=== PATIENT | female | born 1990 | race Caucasian/White ===

== ENCOUNTER → 2016-12-26 | Outpatient (CLI) | payer MEDICAID ==
--- NOTE | 2016-12-26 12:51 | EKG REPORT ---
SEVERITY:- NORMAL ECG - SINUS RHYTHM : Confirmed by: Michael Kaur 26-Dec-2016 12:49:49
== END ==
LOC: OD 11:52
PROVIDERS: ATTEND Advanced Practice Midwife
DX: R05 Cough (principal)
CPT/HCPCS: 93005; 93010

== ENCOUNTER → 2016-12-27 | Outpatient (CLI) | payer MEDICAID | LOC: OD 10:40 | PROVIDERS: ATTEND Advanced Practice Midwife | DX: O26.892 Other specified pregnancy related conditions, second trimester (principal); R07.89 Other chest pain; R05 Cough; Z3A.22 22 weeks gestation of pregnancy | CPT/HCPCS: 71020 ==

== ENCOUNTER 2017-01-05 18:11 | Emergency (ER) | payer MEDICAID ==
[2017-01-05] MEDS ORDERED: METHYLPREDNISOLONE INJ 125 MG/2 ML SDV IV ONE (18:54)
--- NOTE | 2017-01-05 18:54 | ER Document Report ---
ED Medical Screen (RME) - General Stated Complaint: DIFFICULTY BREATHING Time seen by provider: 18:52 Mode of Arrival: Ambulatory Information source: Patient Notes: 26-year-old female presents to ED for difficulty breathing. She states she has an albuterol inhaler but she still cannot find it. She states she's been told she had asthma before right now she's 24 weeks . The readings been more difficult since she was 20 weeks . I have greeted and performed a rapid initial assessment of this patient. A comprehensive ED assessment and evaluation of the patient, analysis of test results and completion of medical decision making process will be conducted by an additional ED providers. TRAVEL OUTSIDE OF THE [place] IN LAST 30 DAYS: No - Related Data Allergies/Adverse Reactions: No Known Allergies Allergy (Unverified 06/16/13 20:20) Past Medical History Past Surgical History: Reports: Hx Cholecystectomy - Immunizations Hx Diphtheria, Pertussis, Tetanus Vaccination: Yes Physical Exam - Vital signs Vitals: Temp Pulse Resp BP Pulse Ox 98.0 F 87 22 H 122/56 L 98 01/05/17 18:28 01/05/17 18:28 01/05/17 18:28 01/05/17 18:28 01/05/17 18:28 Course - Vital Signs Vital signs: Temp Pulse Resp BP Pulse Ox 98.0 F 87 22 H 122/56 L 98 01/05/17 18:28 01/05/17 18:28 01/05/17 18:28 01/05/17 18:28 01/05/17 18:28
[2017-01-05] MEDS ORDERED: IPRATROPIUM BROMIDE 0.02% NEB 0.5 MG/2.5 ML AMPUL NEB ONE (18:56)
[2017-01-05] MEDS ORDERED: ALBUTEROL SULFATE 0.083% NEB 2.5 MG/3 ML AMPUL NEB SCH (19:00)
[2017-01-05] MEDS ORDERED: IPRATROPIUM/ALBUTEROL 0.5-2.5 MG/3 ML AMPUL NEB ONE (19:37)
--- NOTE | 2017-01-05 19:44 | ER Document Report ---
ED General - General Chief Complaint: Breathing Difficulty Stated Complaint: DIFFICULTY BREATHING Mode of Arrival: Ambulatory Notes: This is a 26-year-old female at 24 weeks' gestational age with a history of asthma who presents with wheezing and cough. She states that she was sick 3 weeks ago with an upper respiratory illness and was treated with an antibiotic and inhaler from her OB physician. However today she lost her inhaler. She states that the upper respiratory infection is better however the cough has been lingering and now that she does not have her inhaler she feels short of breath. Denies any chest pain, fevers, chills. She is tolerating by mouth well. She has an OB appointment tomorrow. TRAVEL OUTSIDE OF THE [place] IN LAST 30 DAYS: No - Related Data Allergies/Adverse Reactions: No Known Allergies Allergy (Verified 01/05/17 18:52) Past Medical History - General Information source: Patient - Social History Smoking Status: Former Smoker Chew tobacco use (# tins/day): No Frequency of alcohol use: None Drug Abuse: None Family History: Reviewed & Not Pertinent Patient has suicidal ideation: No Patient has homicidal ideation: No Renal/ Medical History: Denies: Hx Peritoneal Dialysis Past Surgical History: Reports: Hx Cholecystectomy - Immunizations Hx Diphtheria, Pertussis, Tetanus Vaccination: Yes Review of Systems - Review of Systems Notes: REVIEW OF SYSTEMS: CONSTITUTIONAL : Denies fever, chills, or sweats. EENT: Denies eye, ear, throat, or mouth pain or symptoms. CARDIOVASCULAR: Denies chest pain. RESPIRATORY: As per history of present illness GASTROINTESTINAL: Denies abdominal pain. Denies nausea, vomiting, or diarrhea. GENITOURINARY: Denies difficulty urinating, painful urination, burning, frequency, or blood in urine. No vaginal bleeding or loss of fluids. MUSCULOSKELETAL: Denies neck or back pain or joint pain or swelling. SKIN: Denies rash or skin lesions. HEMATOLOGIC : Denies easy bruising or bleeding. LYMPHATIC: Denies swollen, enlarged glands. NEUROLOGICAL: Denies altered mental status or loss of consciousness. Denies headache. PSYCHIATRIC: Denies anxiety or stress or depression. ALL OTHER SYSTEMS REVIEWED AND NEGATIVE. Physical Exam - Vital signs Vitals: Temp Pulse Resp BP Pulse Ox 98.0 F 87 22 H 122/56 L 98 01/05/17 18:28 01/05/17 18:28 01/05/17 18:28 01/05/17 18:28 01/05/17 18:28 - Notes Notes: PHYSICAL EXAMINATION: GENERAL: Well-appearing, well-nourished and in no acute distress. Pleasant and conversant with no conversational dyspnea HEAD: Atraumatic, normocephalic. EYES: Pupils equal round and reactive to light, extraocular movements intact, sclera anicteric, conjunctiva are normal. ENT: nares patent, oropharynx clear without exudates. Moist mucous membranes. NECK: Normal range of motion, supple without lymphadenopathy LUNGS: Good air movement bilaterally, scattered before and expiratory wheezes bilaterally. No rhonchi or rales. HEART: Regular rate and rhythm without murmurs ABDOMEN: Soft, nontender, normoactive bowel sounds. No guarding, no rebound. Gravid EXTREMITIES: Normal range of motion, no pitting or edema. No cyanosis. NEUROLOGICAL: Cranial nerves grossly intact. Normal speech, normal gait. No gross focal motor or sensory deficits appreciated PSYCH: Normal mood, normal affect. SKIN: Warm, Dry, normal turgor, no rashes or lesions noted. Course - Re-evaluation Re-evalutation: 01/05/17 21:50 Patient is feeling significantly better after methylprednisolone and neb treatments. The lungs are clear to auscultation bilaterally. FHT's obtained and reassuring. She will follow up with her OB physician tomorrow as scheduled. We will refill her albuterol inhaler and put her on a short course of prednisone. Strict return precautions discussed 01/06/17 00:11 - Vital Signs Vital signs: Temp Pulse Resp BP Pulse Ox 98.4 F 90 22 H 118/57 L 96 01/05/17 20:21 01/05/17 20:21 01/05/17 18:28 01/05/17 20:21 01/05/17 20:21 Discharge - Discharge Clinical Impression: Asthma exacerbation Qualifiers: Weeks of gestation: 24 weeks Qualified Code(s): Z3A.24 - 24 weeks gestation of Condition: Stable Disposition: HOME, SELF-CARE Additional Instructions: ASTHMA: This is a condition where there is episodic tightness in the bronchial tubes. Allergies, infections, and polluted or cold air may be contributing factors. Emergency treatment of a severe asthma attack may include adrenaline shots , or bronchodilator aerosol. You may feel lightheaded, have a decreased exercise tolerance and a rapid pulse for an hour or two. Rest and get plenty of fluids. Home treatment of asthma requires bronchodilator drugs. These can be administered by injection, inhalation, or by mouth. Antibiotics and corticosteroids may be required for some patients. You should avoid chemical fumes, dusts, pollens, and exercising in very cold or dry air. If you smoke, stop!! If you develop a fever, increased wheezing, chest pain, or severe shortness of breath, you should contact the doctor immediately. STEROID MEDICATION: You have been given an injection of or oral medicine of the cortisone/ steroid class. This medication is used to control inflammation or allergy. Lonnie t is usually only given for a short period of time, until the acute process subsides. There are usually no side effects from short-term use of cortisone-like medications. Some persons feel an increased sense of well-being and are not sleepy at bedtime. Long-term use of cortisone medications is best avoided, unless required for a severe condition. If your condition does not remit, or relapses after the course of corticosteroid medication, you should consult your physician. INHALED BRONCHODILATORS: You have received treatment(s) of and/or prescription for an inhaled bronchodilator -- a medication which stimulates the airways in the lung to dilate. This improves the flow of air in asthma, bronchitis, and emphysema. These medicines have some similarity to adrenaline, and can cause similar side effects: shakiness, racing heart, and a sense of nervousness. These side effects decrease with time. Contact your doctor if these side effects are severe. Do not over-use the medicine. Too-frequent use of the inhaler may make it ineffective. Call your doctor if the inhaler is not controlling your symptoms at the prescribed doses. FOLLOW-UP CARE: If you have been referred to a physician for follow-up care, call the physician s office for an appointment as you were instructed or within the next two days. If you experience worsening or a significant change in your symptoms, notify the physician immediately or return to the Emergency Department at any time for re-evaluation. Follow-up with your [employer] physician tomorrow as scheduled. Return to the ER for any worsening symptoms or concerns. Prescriptions: Albuterol Sulfate [Proair HFA Inhalation Aerosol 8.5 gm MDI] 2 puff IH Q4H PRN # 1 mdi PRN Reason: Prednisone [Deltasone 20 mg Tablet] 2 tab PO DAILY 5 Days
[2017-01-05 20:49] VITALS: BP 118/57
== END 2017-01-05 22:05 | disposition home or self-care (01) ==
LOC: ER 18:11
DX: O99.512 Diseases of the respiratory system complicating pregnancy, second trimester (principal); J45.901 Unspecified asthma with (acute) exacerbation; O26.892 Other specified pregnancy related conditions, second trimester; R05 Cough; R06.02 Shortness of breath; Z87.891 Personal history of nicotine dependence; Z3A.24 24 weeks gestation of pregnancy
CPT/HCPCS: 94640 ×2; 99284; 96374; J2930; J3490; J7620

== ENCOUNTER 2017-01-22 15:13 | Emergency (ER) | payer MEDICAID ==
--- NOTE | 2017-01-22 15:41 | ER Document Report ---
ED Medical Screen (RME) - General Stated Complaint: LEFT SIDE RIB PAIN Notes: 26 yo 26wk c/o left rib pain x 2 weeks, coughed today felt sharp pain and increased pain to left lateral chest wall. no related complaints TRAVEL OUTSIDE OF THE [place] IN LAST 30 DAYS: No - Related Data Allergies/Adverse Reactions: No Known Allergies Allergy (Verified 01/22/17 15:36) Past Medical History Renal/ Medical History: Denies: Hx Peritoneal Dialysis Past Surgical History: Reports: Hx Cholecystectomy - Immunizations Hx Diphtheria, Pertussis, Tetanus Vaccination: Yes
--- NOTE | 2017-01-22 20:06 | ER Document Report ---
ED General - General Chief Complaint: Rib Pain Stated Complaint: LEFT SIDE RIB PAIN Mode of Arrival: Ambulatory Information source: Patient Notes: 26-year-old female presents to the emergency department complaining of left lower lateral rib pain/thorax wall pain. Patient reports is approximately 26 weeks , . Patient states had upper respiratory infection approximately 2 weeks ago with a strong cough. Reports had pain to same area at the time and had almost completely resolved however coughed today and felt a pulling type pain to area and states pain has returned. Denies fever, hemoptysis , sob, n/v, abd/pelvic pain, vaginal bleeding or discharge. Reports was evaluated by [facility] [employer] this morning without abnormal findings. TRAVEL OUTSIDE OF THE [place] IN LAST 30 DAYS: No - HPI Onset/Duration: Intermittent Quality of pain: Achy Severity: Moderate Pain Level: 3 Exacerbated by: Coughing, Deep breathing Similar symptoms previously: Yes Recently seen / treated by doctor: Yes - Related Data Allergies/Adverse Reactions: No Known Allergies Allergy (Verified 01/22/17 15:36) Past Medical History - General Information source: Patient - Social History Smoking Status: Former Smoker Frequency of alcohol use: None Drug Abuse: None Lives with: Family Family History: Reviewed & Not Pertinent Patient has suicidal ideation: No Patient has homicidal ideation: No - Medical History Medical History: Negative Renal/ Medical History: Denies: Hx Peritoneal Dialysis Past Surgical History: Reports: Hx Cholecystectomy - Immunizations Hx Diphtheria, Pertussis, Tetanus Vaccination: Yes Review of Systems - Review of Systems Constitutional: No symptoms reported EENT: No symptoms reported Cardiovascular: No symptoms reported Respiratory: No symptoms reported Gastrointestinal: No symptoms reported Genitourinary: No symptoms reported Female Genitourinary: No symptoms reported Musculoskeletal: No symptoms reported Skin: No symptoms reported Hematologic/Lymphatic: No symptoms reported Neurological/Psychological: See HPI -: Yes All other systems reviewed and negative Physical Exam - Vital signs Vitals: Temp Pulse Resp BP Pulse Ox 98.8 F 100 20 126/68 H 97 01/22/17 15:35 01/22/17 15:35 01/22/17 15:35 01/22/17 15:35 01/22/17 15:35 Interpretation: Normal - General General appearance: Appears well, Alert In distress: None - HEENT Head: Normocephalic, Atraumatic Eyes: Normal Pupils: PERRL - Respiratory Respiratory status: No respiratory distress. No: Respiratory distress, Labored , Retractions, Tachypnea, Tripod position Chest status: Tender, Pain on movement, Pain with cough, Pain with deep breathing. No: Nontender, Chest mass, Ecchymosis, No pleuritic chest pain, Wounds, Accessory muscle use, Prolonged expirations, Splinting, Other Breath sounds: Normal - CTAB Chest palpation: Tender - pt c/o tenderness with palpation to left lateral lower chest wall/rib area. No instability, crepitus, bruising, or swelling.. No : Flail segment, [place] frothy sputum, Purulent sputum, Subcutaneous emphysema, Sucking chest wound, Ecchymosis, Wounds, Other - Cardiovascular Rhythm: Regular Heart sounds: Normal auscultation Murmur: No Pulses: Normal: Radial Normal capillary refill: Yes - Abdominal Inspection: Normal, Gravid female Distension: No distension Bowel sounds: Normal Tenderness: Nontender Organomegaly: No organomegaly - Back Back: Normal, Nontender - Extremities General upper extremity: Normal inspection, Nontender, Normal color, Normal ROM , Normal strength, Normal temperature. No: Edema General lower extremity: Normal inspection, Nontender, Normal color, Normal ROM , Normal strength, Normal temperature, Normal weight bearing. No: Edema, Moon' s sign - Neurological Neuro grossly intact: Yes Cognition: Normal Orientation: AAOx4 Shauna Coma Scale Eye Opening: Spontaneous Shauna Coma Scale Verbal: Oriented [place] Coma Scale Motor: Obeys Commands [place] Coma Scale Total: 15 Speech: Normal Motor strength normal: LUE, RUE, LLE, RLE Sensory: Normal - Psychological Associated symptoms: Normal affect, Normal mood - Skin Skin Temperature: Warm Skin Moisture: Dry Skin Color: Normal Course - Re-evaluation Re-evalutation: 01/22/17 20:10 Patient hemodynamically stable, in no distress, afebrile, nontoxic, and appears well-hydrated. Patient declined x-ray at this time. Patient physical exam findings suggestive of likely intercostal muscle strain with no suggestion of pneumothorax, displaced rib fracture, or other emergent intrathoracic etiology at this time. Patient appears stable for discharge and agrees with home care, follow-up, and ED return precautions. - Vital Signs Vital signs: Temp Pulse Resp BP Pulse Ox 97.8 F 98 16 129/64 H 97 01/22/17 20:20 01/22/17 20:20 01/22/17 20:20 01/22/17 20:20 01/22/17 20:20 Discharge - Discharge Clinical Impression: Intercostal muscle strain Qualifiers: Encounter type: initial encounter Qualified Code(s): S29.011A - Strain of muscle and tendon of front wall of thorax, initial encounter Condition: Stable Disposition: HOME, SELF-CARE Instructions: Chest Wall Pain ([facility]), Muscle Strain ([facility]), Acetaminophen, Warm Packs ([facility]) Additional Instructions: Follow-up with your primary care provider in the next 1-2 days as discussed. Return to the Emergency Department for any worsening symptoms or concerns. Prescriptions: Lidocaine/Menthol [Lidopatch] 1 patch TP DAILY PRN #5 adh..patch PRN Reason: Referrals: CARMELO SOFIA MD [Primary Care Provider] - Follow up tomorrow
[2017-01-22 20:23] VITALS: BP 129/64
== END 2017-01-22 20:23 | disposition home or self-care (01) ==
LOC: ER 15:13
DX: O9A.219 Injury, poisoning and certain other consequences of external causes complicating pregnancy, unspecified trimester (principal); S29.011A Strain of muscle and tendon of front wall of thorax, initial encounter; X58.XXXA Exposure to other specified factors, initial encounter; O26.899 Other specified pregnancy related conditions, unspecified trimester; R07.81 Pleurodynia; Z87.891 Personal history of nicotine dependence; Z3A.00 Weeks of gestation of pregnancy not specified
CPT/HCPCS: 99283

== ENCOUNTER → 2017-01-22 | Outpatient (CLI) | payer MEDICAID | LOC: LC 14:33 | PROVIDERS: ATTEND Obstetrics & Gynecology | DX: Z53.9 Procedure and treatment not carried out, unspecified reason (principal) ==

== ENCOUNTER 2017-04-25 06:37 | Inpatient (IN) | payer MEDICAID ==
[2017-04-24 09:43] LABS: APPEARANCE,URINE SLIGHTLY-CLOUDY; BILIRUBIN,URINE NEGATIVE (NEGATIVE); GLUCOSE, URINE NEGATIVE (NEGATIVE); KETONES,URINE TRACE mg/dL (NEGATIVE); LEUKOCYTE ESTERASE,URINE NEGATIVE (NEGATIVE); NITRITE,URINE NEGATIVE (NEGATIVE); PROTEIN,URINE 30 mg/dL (NEGATIVE); URINE SPECIFIC GRAVITY 1.024
[2017-04-24 09:49] LABS: ABSOLUTE EOSINOPHILS # (AUTO) 0.2 10^3/uL (0.0-0.6); ABSOLUTE LYMPHOCYTES (AUTO) 2.5 10^3/uL (0.5-4.7); ABSOLUTE MONOCYTES (AUTO) 0.5 10^3/uL (0.1-1.4); ABSOLUTE NEUT (AUTO) 6.4 10^3/uL (1.7-8.2); BASOPHILS % (AUTO) 0.2 % (0-2); EOSINOPHILS % (AUTO) 2.3 % (0-6); HEMATOCRIT 35.4 % (36.0-47.0); HEMOGLOBIN 12.1 g/dL (12.0-15.5); HGB HCT DIFFERENCE 0.9; MEAN CORPUSCULAR HEMOGLOBIN 29.8 pg (27.0-33.4); MEAN CORPUSCULAR HGB CONC 34.2 g/dL (32.0-36.0); MEAN CORPUSCULAR VOLUME 87 fl (80-97); MONOCYTES % (AUTO) 4.9 % (3-13); RED BLOOD COUNT 4.05 10^6/uL (3.72-5.28); SEGMENTED NEUTROPHILS % (AUTO) 66.6 % (42-78); WHITE BLOOD COUNT 9.5 10^3/uL (4.0-10.5)
[2017-04-24 09:59] LABS: URINE BARBITURATES SCREEN NEGATIVE; URINE METHADONE SCREEN NEGATIVE; URINE OPIATES LOW NEGATIVE; URINE PHENCYCLIDINE SCREEN NEGATIVE
[~2017-04-25 06:37] MED LIST: CEFAZOLIN 1 GM/D5W RTU 1 GM/50 ML RTUPB IV PRN; LACTATED RINGERS 1000 ML IV PRN; LIDOCAINE 0.5% INJ-PF (5 MG/ML) 50 ML SDV SUBCUT PRN; RINGERS SOLUTION,LACTATED 1,000 ML IV ONE
[2017-04-25] MEDS ORDERED: EPHEDRINE SULFATE INJ 50 MG/1 ML AMPULE ONE (07:34)
[2017-04-25] MEDS ORDERED: FENTANYL CITRATE INJ/PF 100 MCG/2 ML AMPUL ONE ×2 (07:34→11:59)
[2017-04-25] MEDS ORDERED: MIDAZOLAM 2 MG/2 ML INJ ONE (07:34)
[2017-04-25] MEDS ORDERED: OXYTOCIN 10 UNIT/ML VIAL ONE (07:34)
[2017-04-25] MEDS ORDERED: OXYTOCIN/NORMAL SALINE 20 UNIT/1,000 ML RTUINJ ONE (07:34)
[2017-04-25] MEDS ORDERED: MEPERIDINE HCL/PF INJ 25 MG/1 ML DISP.SYRIN IV PRN (10:00)
[2017-04-25] MEDS ORDERED: MORPHINE SULFATE 10 MG/ML INJ IV PRN (10:00)
[2017-04-25] MEDS ORDERED: PROMETHAZINE HCL INJ 25 MG/1 ML VIAL IV PRN ×3 (10:00→12:43)
[2017-04-25] MEDS ORDERED: FENTANYL CITRATE INJ/PF 100 MCG/2 ML AMPUL IV PRN ×3 (10:00)
[2017-04-25] MEDS ORDERED: ONDANSETRON HCL INJ/PF 4 MG/2 ML SDV IV PRN ×2 (10:00→12:47)
[2017-04-25] MEDS ORDERED: DIPHENHYDRAMINE HCL 50 MG/ML VIAL IV PRN (10:00)
[2017-04-25] MEDS ORDERED: CEFAZOLIN INJ 1 GM VIAL ONE (10:26)
[2017-04-25] MEDS ORDERED: MISOPROSTOL 0.2 MG TABLET ONE ×2 (10:29→13:26)
[2017-04-25] MEDS ORDERED: ACETAMINOPHEN 100 ML IV ONE (11:47)
[2017-04-25] MEDS ORDERED: HYDROMORPHONE HCL INJ/PF 2 MG/ML AMPULE ONE ×2 (12:01→13:25)
[2017-04-25] MEDS ORDERED: MEASLES,MUMPS&RUBELLA VACC/PF 0.5 ML VIAL SUBCUT PRN (12:43)
[2017-04-25] MEDS ORDERED: DIPH/PERTUSS(ACELL)/TETANUS VAC/PF 0.5 ML SYR (>=10YO) IM PRN (12:43)
[2017-04-25] MEDS ORDERED: ACETAMINOPHEN 325 MG TABLET PO PRN (12:43)
[2017-04-25] MEDS ORDERED: OXYTOCIN/NORMAL SALINE 1,000 ML IV PRN (12:43)
[2017-04-25] MEDS ORDERED: HYDROMORPHONE HCL INJ/PF 2 MG/ML AMPULE IV PRN (12:43)
--- NOTE | 2017-04-25 13:14 | OPERATIVE REPORT E ---
Operative Report NAME: SANKET SYLVESTER : 1990 AGE: 26Y DATE OF SURGERY: 04/25/2017 ROOM: 222 PREOPERATIVE DIAGNOSIS: Intrauterine at 39+ weeks with history of C section and desire for repeat with tubal ligation. POSTOPERATIVE DIAGNOSIS: Status post repeat low-transverse C section with bilateral tubal ligation and lysis of adhesions. OPERATION PERFORMED: Repeat low-transverse C section with bilateral tubal ligation and lysis of adhesions. SURGEON: VANNA ALFARO M.D. ANESTHESIA: Spinal. ESTIMATED BLOOD LOSS: 600 mL. SPECIMEN TO PATHOLOGY: None. The placenta was discarded. FINDINGS: A casiano female , vertex presentation with clear amniotic fluid, Apgars 9 and 9. Weight was 3465 grams or 7 pounds 10 ounces. Normal-appearing uterus, tubes, and ovaries; however, there were significant intraperitoneal adhesions from the anterior aspect of the uterus to the anterior abdominal wall. DESCRIPTION OF PROCEDURE: After discussing risks, benefits, and alternatives of the procedure and obtaining informed consent, the patient was taken to the operating room, where spinal anesthesia was achieved. She was positioned in a dorsal supine position with a leftward tilt. She was prepped and draped in the usual standard fashion after placing her Campuzano catheter. Anesthesia was found to be adequate. Pfannenstiel skin incision was made and the abdomen was entered in layers in the standard fashion. On entering into the peritoneal cavity, significant adhesions were noted. A window was cleared to allow for a hysterotomy incision. This was done sharply and bluntly. Next, using a C-safe knife, the hysterectomy incision was made. The initial attempt at delivering the baby's head was somewhat limited. Therefore, the muscles were incised on the patient's left with cautery. Next, the head delivered easily. The shoulders and body delivered easily thereafter. Cord was clamped and cut. was handed to pediatrics who were present. The placenta was manually extracted. The uterus was unable to be exteriorized until further adhesions were lysed. The dense adhesion was clamped with Angelica clamp and cut and suture ligated. The uterus was then able to be exteriorized. The hysterotomy incision was cleared of all clots and debris and the hysterotomy incision was closed in a double-layer fashion with 0-Monocryl. Hemostasis was observed. During this process, an area superior to the incision was also closed with 2-0 Vicryl. Next, a Filshie clip was placed across the isthmic portion of each fallopian tube. Uterus, tubes, and ovaries were returned to the peritoneal cavity. An area of oozing anterior to the bladder was noted and this was oversewn with running 2-0 Vicryl. Excellent hemostasis was then observed. A piece of Surgicel was placed over the anterior aspect of the uterus where the peritoneal adhesions had been. Next, the peritoneum was closed with 2-0 Vicryl in a running fashion. The subfascial spaces were inspected and noted to be hemostatic. Fascia was closed with #1 Vicryl. The subcutaneous spaces were irrigated and hemostasis achieved with cautery. The skin was closed in a subcuticular fashion with 3-0 Monocryl. An OpSite dressing was applied. The patient was taken to recovery in stable condition. All sponge, needle, lap, and instrument counts were correct x2. DICTATING PHYSICIAN: VANNA ALFARO M.D. [id number] PHY#: [id number] ID: [id number] JOB#: [id number] ACCT: [id number] cc:VANNA ALFARO M.D. >
[2017-04-25] MEDS: DOCUSATE SODIUM 100 MG CAPSULE PO SCH (18:22)
[2017-04-25] MEDS: CEFAZOLIN 1 GM/D5W RTU 1 GM/50 ML RTUPB IV SCH (18:23)
[2017-04-25] MEDS ORDERED: NEOSTIGMINE METHYLSULFATE 10 MG/10 ML VIAL ONE (18:44)
[2017-04-25] MEDS ORDERED: METOCLOPRAMIDE HCL INJ/PF 10 MG/2 ML SDV ONE (18:44)
[2017-04-25] MEDS ORDERED: ONDANSETRON HCL INJ/PF 4 MG/2 ML SDV ONE (18:44)
[2017-04-25] MEDS ORDERED: DEXAMETHASONE SOD PHOSPHATE INJ 4 MG/1 ML VIAL ONE (18:44)
[2017-04-25] MEDS: OXYCODONE-ACETAMINOPHEN 5-325 MG TABLET PO PRN ×2 (19:48→23:59)
[2017-04-26] MEDS: CEFAZOLIN 1 GM/D5W RTU 1 GM/50 ML RTUPB IV SCH (01:21)
[2017-04-26] MEDS: OXYCODONE-ACETAMINOPHEN 5-325 MG TABLET PO PRN ×5 (04:01→22:27)
[2017-04-26] MEDS: SIMETHICONE 80 MG TAB.CHEW PO PRN ×3 (04:06→18:33)
[2017-04-26 06:30] LABS: HEMATOCRIT 32.3 % (36.0-47.0); HGB HCT DIFFERENCE 0.7; MEAN CORPUSCULAR HEMOGLOBIN 29.7 pg (27.0-33.4); MEAN CORPUSCULAR VOLUME 87 fl (80-97); RED CELL DISTRIBUTION WIDTH 12.9 % (11.5-14.0); WHITE BLOOD COUNT 13.5 10^3/uL (4.0-10.5)
[2017-04-26] MEDS ORDERED: ALBUTEROL SULFATE 0.083% NEB 2.5 MG/3 ML AMPUL NEB PRN ×2 (10:03→10:15)
[2017-04-26] MEDS: PRENATAL VITAMIN W-O CA NO5/FE FUMARATE/FA CAPSULE PO SCH (10:04)
[2017-04-26] MEDS: DOCUSATE SODIUM 100 MG CAPSULE PO SCH ×2 (10:05→17:42)
[2017-04-26] MEDS: IBUPROFEN 800 MG TABLET PO SCH ×2 (10:05→17:41)
[2017-04-26] MEDS ORDERED: BISACODYL 10 MG SUPP.RECT PR PRN (10:30)
--- NOTE | 2017-04-26 10:38 | PDOC PROGRESS REPORT ---
Subjective-OB Subjective: Post Delivery Day: 26 year old. Denies any needs at this time OOB in room, c/o of incisional pain and gas. bottle feeding, voiding, walking in halls, taking diet, ? gas, feels like asthma is acting up Physical Exam (OB) Vital Signs: Temp Pulse Resp BP Pulse Ox 98.6 F 88 16 121/56 L 99 04/26/17 07:42 04/26/17 07:42 04/26/17 07:42 04/26/17 07:42 04/26/17 07:42 Intake & Output 04/25/17 04/26/17 04/27/17 06:59 06:59 06:59 Intake Total 1800 Output Total 1700 Balance 100 Weight 89.811 kg - Dressing Removed: No - changed per rehab tech Incision: Dressing Closure Type: Surgical Glue - Lochia Lochia Amount: Small 10-25 ml Lochia Color: Rubra/Red - Abdomen Description: Tender, Soft, Round Hernia Present: No Fundal Description: Firm, Midline Fundal Height: u/u - u/2 Objective-Diagnostic Laboratory: 04/26/17 06:11 04/26/17 06:11 WBC 13.5 H RBC 3.70 L Hgb 11.0 L Hct 32.3 L MCV 87 MCH 29.7 MCHC 34.0 RDW 12.9 Plt Count 214 Assessment and Plan(PN) - Assessment and Plan (1) Delivery by elective caesarean section Is this a current diagnosis for this admission?: Yes - Time Spent with Patient Time with patient: Less than 15 minutes Medications reviewed and adjusted accordingly: Yes - Disposition Anticipated Discharge: Home Within: within 48 hours - Dr. Joseph in to talk with pt. orderd respiratory tx for asthma, listened to abd, some BS, will drink coffee, possible suppository
[2017-04-27] MEDS: IBUPROFEN 800 MG TABLET PO SCH ×2 (01:34→09:31)
[2017-04-27] MEDS: OXYCODONE-ACETAMINOPHEN 5-325 MG TABLET PO PRN ×2 (02:39→09:31)
[2017-04-27] MEDS: SIMETHICONE 80 MG TAB.CHEW PO PRN (02:41)
[2017-04-27 08:38] VITALS: BP 104/52
[2017-04-27] MEDS: DOCUSATE SODIUM 100 MG CAPSULE PO SCH (09:31)
[2017-04-27] MEDS: PRENATAL VITAMIN W-O CA NO5/FE FUMARATE/FA CAPSULE PO SCH (09:33)
--- NOTE | 2017-04-27 09:43 | PDOC PROGRESS REPORT ---
Subjective-OB Subjective: Post Delivery Day: 26 year old. Denies any needs at this time Doing better today, still some incisional discomfort, OOB in room and halls, taking a shower, breast feeding, scant bleeding, ready to go home, asthma ok Physical Exam (OB) Vital Signs: Temp Pulse Resp BP Pulse Ox 98.6 F 78 16 104/52 L 100 04/27/17 07:55 04/27/17 07:55 04/27/17 04:46 04/27/17 07:55 04/27/17 07:55 Intake & Output 04/26/17 04/27/17 04/28/17 06:59 06:59 06:59 Intake Total 1800 550 Output Total 1700 Balance 100 550 - PIH/Pre-Eclampsia Clonus: Negative - Dressing Removed: No Incision: Dressing Closure Type: opsite - Bilateral Tubal Ligation Dressing Removed: No - opsite Site: Dressing - Lochia Lochia Amount: Scant < 10 ml Lochia Color: Rubra/Red - Abdomen Description: Tender Hernia Present: No Fundal Description: Firm, Midline Fundal Height: u/u - u/2 Objective-Diagnostic Laboratory: 04/26/17 06:11 Assessment and Plan(PN) - Assessment and Plan (1) Delivery by elective caesarean section Is this a current diagnosis for this admission?: Yes - Time Spent with Patient Time with patient: Less than 15 minutes Medications reviewed and adjusted accordingly: Yes - Disposition Anticipated Discharge: Home Within: Other - home today
--- NOTE | 2017-04-27 09:47 | PDOC DISCHARGE SUMMARY ---
Final Diagnosis Discharge Date: 04/27/17 Discharge Data - Discharge Medication Home Medications: Pnv No.122/Iron/Folic Acid [ Multi Tablet] 1 tab PO DAILY 04/15/17 Ibuprofen [Motrin 800 mg Tablet] 800 mg PO Q8A #60 tablet 04/27/17 Oxycodone HCl/Acetaminophen [Percocet 5-325 mg Tablet] 1 tab PO Q4HP PRN #30 tablet 04/27/17 Reason(s) for Admission: Ceasarean Section-Repeat, Tubal Ligation Procedures: NST, Ultrasound Intrapartum Procedure(s): : Low Cervical, Transverse - Data Baby 1 Female Home with Mother: Yes Complications: No - Diagnosis Test Laboratory: Temp Pulse Resp BP Pulse Ox 98.6 F 78 16 104/52 L 100 04/27/17 07:55 04/27/17 07:55 04/27/17 04:46 04/27/17 07:55 04/27/17 07:55 04/24/17 04/24/17 04/26/17 09:08 09:15 06:11 RBC 4.05 3.70 L Hgb 12.1 11.0 L Hct 35.4 L 32.3 L Urine Opiates Screen NEGATIVE - Discharge information/Instructions Discharge Activity: Activity As Tolerated, No Lifting Over 10 Pounds, No Lifting /Push/Pulling, Pelvic Rest Discharge Diet: As Tolerated Disposition: HOME, SELF-CARE Follow up with: [facility] in: 1, Weeks
--- NOTE | 2017-05-10 10:07 | PDOC DELIVERY SUMMARY ---
Delivery Summary - Maternal Hx : V Hx # Term Pregnancies: 1 Hx Total # of Abortions (Sponateous & Elective): 3 ADRIENNE: 05/01/17 Ruptured Membranes: AROM Time of Rupture: 10:54 Fluids: Clear - Delivery Presentation: Vertex Heart Rate Monitoring: Done Pre-Operatively Support Person Present: Yes Location: OR : Scheduled Placenta: Within Normal Limits Delivery of Placenta Date: 04/25/17 Delivery of Placenta Time: 10:57 - Medications Type of Anesthesia:: Spinal - Infant Assess and Care Baby 1 Female Delivery of Date: 04/25/17 Delivery of Time: 10:56 at 1 minute: 9 at 5 minutes: 9 Preprinted Number On Band: [id number] Skin to Skin: No To Nursery At: 11:03 Mode of Transport: Bassinet Infant Delivery Weight: 3465 kg Infant Delivery Length: 21.25 in - Delivery Personnel Campground Hand: NELIDA Hartry RN: ALFRED RN: DARREN CURIEL MD: VANNA ALFARO
== END 2017-04-27 13:20 | disposition home or self-care (01) | DRG 766 ==
LOC: 2S 06:37
PROVIDERS: ADMIT Specialist; ATTEND Specialist
PROC: 0UL70CZ Occlusion of Bilateral Fallopian Tubes with Extraluminal Device, Open Approach (ICD-10-PCS; 2017-04-25)
PROC: 0UN40ZZ Release Uterine Supporting Structure, Open Approach (ICD-10-PCS; 2017-04-25)
PROC: 4A1HXCZ Monitoring of Products of Conception, Cardiac Rate, External Approach (ICD-10-PCS; 2017-04-25)
PROC: 10D00Z1 Extraction of Products of Conception, Low, Open Approach (ICD-10-PCS; principal; 2017-04-25 10:15)
DX: O34.211 Maternal care for low transverse scar from previous cesarean delivery (principal); O99.62 Diseases of the digestive system complicating childbirth; K66.0 Peritoneal adhesions (postprocedural) (postinfection); O99.513 Diseases of the respiratory system complicating pregnancy, third trimester; J45.909 Unspecified asthma, uncomplicated; Z30.2 Encounter for sterilization; Z87.891 Personal history of nicotine dependence; Z3A.39 39 weeks gestation of pregnancy; Z37.0 Single live birth
CPT/HCPCS: 1961; 36415; 80307; 81001; 85025; 85027; 86850; 86900; 86901; 90707; 90715; 94640; 94799; J0131; J0690; J1100; J1170; J2250; J2405; J2590; J2765; J3010; J3490; J7120

== ENCOUNTER 2017-06-21 10:48 | Emergency (ER) | payer MEDICAID ==
--- NOTE | 2017-06-21 11:00 | ER Document Report ---
ED Medical Screen (RME) - General Chief Complaint: Flank Pain Stated Complaint: ABDOMINAL PAIN Time Seen by Provider: 06/21/17 10:59 Mode of Arrival: Ambulatory Information source: Patient TRAVEL OUTSIDE OF THE [place] IN LAST 30 DAYS: No - HPI Patient complains to provider of: back pain Onset: Other - pt with c/o LBP and dysuria -- thinks she may have a UTI. Also is and R breast is sore -- concerned she may have mastitis - Related Data Allergies/Adverse Reactions: No Known Allergies Allergy (Verified 06/21/17 10:55) Past Medical History - Past Medical History Cardiac Medical History: Denies: Hx Hypertension, Hx Pulmonary Embolism, Hx Heart Murmur Pulmonary Medical History: Reports: Hx Asthma Denies: Hx Sleep Apnea, Hx Tuberculosis Neurological Medical History: Denies: Hx Cerebrovascular Accident, Hx Seizures Endocrine Medical History: Denies: Hx Hyperthyroidism, Hx Hypothyroidism Renal/ Medical History: Denies: Hx Kidney Stones, Hx Ovarian Cysts, Hx Peritoneal Dialysis, Hx Pelvic Inflammatory Disease Malignancy Medical History: Denies: Hx Breast Cancer, Hx Cervical Cancer, Hx Ovarian Cancer GI Medical History: Denies: Hx Gastroesophageal Reflux Disease, Hx Hiatal Hernia , Hx Ulcer Musculoskeltal Medical History: Denies Hx Fibromyalgia Psychiatric Medical History: Reports: Hx Depression Denies: Hx Bipolar Disorder, Hx Post Traumatic Stress Disorder, Hx Schizophrenia Traumatic Medical History: Reports: Hx Fractures - RIGHT WRIST Infectious Medical History: Denies: Hx HIV Past Surgical History: Reports: Hx Cholecystectomy - Immunizations Hx Diphtheria, Pertussis, Tetanus Vaccination: Yes Physical Exam - Vital signs Vitals: Temp Pulse Resp BP Pulse Ox 97.9 F 90 18 113/66 97 06/21/17 10:50 06/21/17 10:50 06/21/17 10:50 06/21/17 10:50 06/21/17 10:50 Course - Vital Signs Vital signs: Temp Pulse Resp BP Pulse Ox 97.9 F 90 18 113/66 97 06/21/17 10:50 06/21/17 10:50 06/21/17 10:50 06/21/17 10:50 06/21/17 10:50
[2017-06-21 11:25] LABS: ABSOLUTE EOSINOPHILS # (AUTO) 0.5 10^3/uL (0.0-0.6); ABSOLUTE MONOCYTES (AUTO) 0.4 10^3/uL (0.1-1.4); ABSOLUTE NEUT (AUTO) 2.8 10^3/uL (1.7-8.2); BASOPHILS % (AUTO) 0.6 % (0-2); EOSINOPHILS % (AUTO) 8.6 % (0-6); HEMATOCRIT 39.3 % (36.0-47.0); HEMOGLOBIN 13.5 g/dL (12.0-15.5); HGB HCT DIFFERENCE 1.2; LYMPHOCYTES % (AUTO) 35.1 % (13-45); MEAN CORPUSCULAR HEMOGLOBIN 29.9 pg (27.0-33.4); MEAN CORPUSCULAR HGB CONC 34.4 g/dL (32.0-36.0); MEAN CORPUSCULAR VOLUME 87 fl (80-97); MONOCYTES % (AUTO) 6.4 % (3-13); RED BLOOD COUNT 4.52 10^6/uL (3.72-5.28); RED CELL DISTRIBUTION WIDTH 12.8 % (11.5-14.0); SEGMENTED NEUTROPHILS % (AUTO) 49.3 % (42-78); WHITE BLOOD COUNT 5.7 10^3/uL (4.0-10.5)
[2017-06-21 11:37] LABS: ALANINE AMINOTRANSFERASE 40 U/L (9-52); ALBUMIN 4.5 g/dL (3.5-5.0); ALKALINE PHOSPHATASE 76 U/L (38-126); ANION GAP 11 (5-19); ASPARTATE AMINO TRANSFERASE 26 U/L (14-36); BILIRUBIN,DIRECT 0.3 mg/dL (0.0-0.4); BILIRUBIN,TOTAL 0.5 mg/dL (0.2-1.3); BLOOD UREA NITROGEN 7 mg/dL (7-20); CALCIUM 9.8 mg/dL (8.4-10.2); CARBON DIOXIDE 24 mmol/L (22-30); CHLORIDE 107 mmol/L (98-107); CREATININE RESULT 0.69 mg/dL (0.52-1.25); GLUCOSE 88 mg/dL (75-110); POTASSIUM 4.2 mmol/L (3.6-5.0); SODIUM 142.4 mmol/L (137-145); TOTAL PROTEIN 7.3 g/dL (6.3-8.2)
[2017-06-21 11:54] LABS: APPEARANCE,URINE SLIGHTLY-CLOUDY; BILIRUBIN,URINE NEGATIVE (NEGATIVE); GLUCOSE, URINE NEGATIVE (NEGATIVE); KETONES,URINE NEGATIVE (NEGATIVE); LEUKOCYTE ESTERASE,URINE NEGATIVE (NEGATIVE); NITRITE,URINE NEGATIVE (NEGATIVE); PROTEIN,URINE NEGATIVE (NEGATIVE)
--- NOTE | 2017-06-21 12:38 | ER Document Report ---
ED General - General Chief Complaint: Flank Pain Stated Complaint: ABDOMINAL PAIN Time Seen by Provider: 06/21/17 11:22 Mode of Arrival: Ambulatory Information source: Patient Notes: Patient presents emergency department with complaints of left-sided flank pain for the past 3 days and right breast pain that started yesterday. Patient is currently breast-feeding. She reports a fever of 102.7 yesterday. No fever today. denies vomiting & Diarrhea. Reports history of UTIs. Denies pain with void or urinary frequency. Is post from April. She had her post up evaluation by her DIRECTOR FUNERAL on Friday. TRAVEL OUTSIDE OF THE [place] 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 - Related Data Allergies/Adverse Reactions: No Known Allergies Allergy (Verified 06/21/17 10:55) Past Medical History - General Information source: Patient Last Menstrual Period: april - Social History Smoking Status: Current Some Day Smoker Cigarette use (# per day): Yes Chew tobacco use (# tins/day): No Frequency of alcohol use: None Drug Abuse: None Lives with: Family Family History: Reviewed & Not Pertinent Patient has suicidal ideation: No Patient has homicidal ideation: No - Past Medical History Cardiac Medical History: Denies: Hx Hypertension, Hx Pulmonary Embolism, Hx Heart Murmur Pulmonary Medical History: Reports: Hx Asthma Denies: Hx Sleep Apnea, Hx Tuberculosis Neurological Medical History: Denies: Hx Cerebrovascular Accident, Hx Seizures Endocrine Medical History: Denies: Hx Hyperthyroidism, Hx Hypothyroidism Renal/ Medical History: Denies: Hx Kidney Stones, Hx Ovarian Cysts, Hx Peritoneal Dialysis, Hx Pelvic Inflammatory Disease Malignancy Medical History: Denies: Hx Breast Cancer, Hx Cervical Cancer, Hx Ovarian Cancer GI Medical History: Denies: Hx Gastroesophageal Reflux Disease, Hx Hiatal Hernia , Hx Ulcer Musculoskeltal Medical History: Denies Hx Fibromyalgia Psychiatric Medical History: Reports: Hx Depression Denies: Hx Bipolar Disorder, Hx Post Traumatic Stress Disorder, Hx Schizophrenia Traumatic Medical History: Reports: Hx Fractures - RIGHT WRIST Infectious Medical History: Denies: Hx HIV Past Surgical History: Reports: Hx Section, Hx Cholecystectomy - Immunizations Hx Diphtheria, Pertussis, Tetanus Vaccination: Yes Review of Systems - Review of Systems Notes: Review HPI for review of systems., All other systems negative Physical Exam - Vital signs Vitals: Temp Pulse Resp BP Pulse Ox 97.9 F 90 18 113/66 97 06/21/17 10:50 06/21/17 10:50 06/21/17 10:50 06/21/17 10:50 06/21/17 10:50 - Notes Notes: PHYSICAL EXAMINATION: GENERAL: Well-appearing and in no acute distress HEAD: Atraumatic, normocephalic. EYES: Pupils equal round extraocular movements intact, sclera anicteric, conjunctiva are normal. ENT: nares patent, oropharynx clear without exudates. Moist mucous membranes. NECK: Normal range of motion, supple without lymphadenopathy LUNGS: CTAB and equal. No wheezes rales or rhonchi. HEART: Regular rate and rhythm without murmurs ABDOMEN: Soft, no tenderness. No guarding, no rebound BACK: left cva slight ttp, no erythema/warmth/swelling EXTREMITIES: Normal range of motion, no pitting edema. No cyanosis. NEUROLOGICAL: Cranial nerves grossly intact. Normal sensory/motor exams. PSYCH: Normal mood, normal affect. SKIN: Warm, Dry, normal turgor, no rashes or lesions noted, right breast with slight erythema at 1100 with slight warmth, no swelling, no induration Course - Re-evaluation Re-evalutation: 06/21/17 labs Unremarkable. Right breast slightly with erythema tender to palpate will treat for mastitis. Patient instructed on dicloxacillin, provided with written information on mastitis. Patient instructed to follow-up with her DIRECTOR FUNERAL on Friday for recheck. She verbalized understanding to all instructions - Vital Signs Vital signs: Temp Pulse Resp BP Pulse Ox 97.6 F 82 16 110/65 99 06/21/17 12:46 06/21/17 12:46 06/21/17 12:46 06/21/17 12:46 06/21/17 12:46 - Laboratory Result Diagrams: 06/21/17 11:05 06/21/17 11:05 Laboratory results interpreted by me: 06/21/17 06/21/17 11:05 11:05 Eosinophils % 8.6 H Urine Urobilinogen 2.0 H Discharge - Discharge Clinical Impression: Flank pain, Mastitis Condition: Stable Disposition: HOME, SELF-CARE Instructions: Acetaminophen, Penicillins ([facility]), Mastitis ([facility]), Flank Pain ([facility] ) Additional Instructions: *You have been treated for left sided flank pain, mastitis *Take medication as prescribed *Monitor your breast for signs of increasing infection such as increasing pain, redness, swelling, warmth *Take tylenol for pain or fever as indicated *Follow up with [facility] Friday for a recheck *Return to ED for signs of increasing infection, worsening condition, changes, needs, concerns Prescriptions: Dicloxacillin Sodium 500 mg PO QID #42 capsule Referrals: CARMELO SOFIA MD [Primary Care Provider] - 06/23/17
[2017-06-21 12:46] VITALS: BP 110/65
== END 2017-06-21 12:46 | disposition home or self-care (01) ==
LOC: ER 10:48
DX: O91.22 Nonpurulent mastitis associated with the puerperium (principal); R10.9 Unspecified abdominal pain; R50.9 Fever, unspecified
CPT/HCPCS: 36415; 80053; 81001; 85025; 99284

== ENCOUNTER 2018-07-04 17:57 | Emergency (ER) | payer OTHER, MEDICAID ==
[2018-07-04 18:42] VITALS: BP 115/69
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
--- NOTE | 2018-07-04 20:07 | RADIOLOGY REPORT (SQ) ---
EXAM DESCRIPTION: CHEST 2 VIEWS COMPLETED DATE/TIME: 07/04/2018 7:59 pm REASON FOR STUDY: pain along left chest wall COMPARISON: None. EXAM PARAMETERS: NUMBER OF VIEWS: two views TECHNIQUE: Digital Frontal and Lateral radiographic views of the chest acquired. RADIATION DOSE: NA LIMITATIONS: none FINDINGS: LUNGS AND PLEURA: No opacities, masses or pneumothorax. No pleural effusion. MEDIASTINUM AND HILAR STRUCTURES: No masses or contour abnormalities. HEART AND VASCULAR STRUCTURES: Heart normal size. No evidence for failure. BONES: No acute findings. HARDWARE: None in the chest. OTHER: No other significant finding. IMPRESSION: NO ACUTE RADIOGRAPHIC FINDING IN THE CHEST. TECHNICAL DOCUMENTATION: JOB ID: [id number] [employer]- All Rights Reserved Reading location - IP/workstation name: [email or web address]
== END 2018-07-04 20:47 | disposition home or self-care (01) ==
LOC: ER 17:57
DX: M25.512 Pain in left shoulder (principal); M54.2 Cervicalgia; V89.2XXA Person injured in unspecified motor-vehicle accident, traffic, initial encounter
CPT/HCPCS: 71046; 99283

== ENCOUNTER 2018-07-05 17:18 | Emergency (ER) | payer OTHER, MEDICAID ==
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
--- NOTE | 2018-07-05 18:34 | RADIOLOGY REPORT (SQ) ---
EXAM DESCRIPTION: CERV SP 4 OR 5 VIEWS COMPLETED DATE/TIME: 07/05/2018 6:23 pm REASON FOR STUDY: vc neck pain day after COMPARISON: None. NUMBER OF VIEWS: Five views. TECHNIQUE: AP, lateral, obliques and odontoid radiographic images acquired of the cervical spine. LIMITATIONS: None. FINDINGS: MINERALIZATION: Normal. ALIGNMENT: Mild straightening of the cervical lordosis. VERTEBRAE: Vertebral bodies of normal height. DISCS: No significant osteophytes or sclerosis. Disc height maintained. FORAMINA: No osteophytes or foraminal narrowing. LATERAL AND POSTERIOR ELEMENTS: Facets, lateral masses and spinous processes without significant find ings. HARDWARE: None in the spine. SOFT TISSUES: No masses or calcifications. Lung apices clear. OTHER: No other significant finding. IMPRESSION: No fracture.Mild straightening of the cervical lordosis. TECHNICAL DOCUMENTATION: JOB ID: [id number] [id number] 2010 [employer]- All Rights Reserved Reading location - IP/workstation name: [email or web address]
[2018-07-05 19:21] VITALS: BP 122/78
== END 2018-07-05 19:19 | disposition home or self-care (01) ==
LOC: ER 17:18
DX: S16.1XXA Strain of muscle, fascia and tendon at neck level, initial encounter (principal); M54.2 Cervicalgia; V49.40XA Driver injured in collision with unspecified motor vehicles in traffic accident, initial encounter; J45.909 Unspecified asthma, uncomplicated
CPT/HCPCS: 72050; 99283

== ENCOUNTER 2018-07-09 07:54 | Emergency (ER) | payer OTHER ==
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
[2018-07-09] MEDS ORDERED: NORMAL SALINE 1000 ML 1,000 ML IV ONE (08:34)
[2018-07-09] MEDS ORDERED: ACETAMINOPHEN 325 MG TABLET PO ONE (08:34)
[2018-07-09] MEDS ORDERED: KETOROLAC TROMETHAMINE INJ/PF 30 MG/1 ML SDV IV ONE (08:34)
[2018-07-09 09:00] LABS: ABSOLUTE EOSINOPHILS # (AUTO) 0.3 10^3/uL (0.0-0.6); ABSOLUTE LYMPHOCYTES (AUTO) 2.8 10^3/uL (0.5-4.7); ABSOLUTE MONOCYTES (AUTO) 0.3 10^3/uL (0.1-1.4); ABSOLUTE NEUT (AUTO) 4.9 10^3/uL (1.7-8.2); BASOPHILS % (AUTO) 0.5 % (0-2); EOSINOPHILS % (AUTO) 3.7 % (0-6); HEMATOCRIT 41.4 % (36.0-47.0); HEMOGLOBIN 14.5 g/dL (12.0-15.5); LYMPHOCYTES % (AUTO) 33.9 % (13-45); MEAN CORPUSCULAR HEMOGLOBIN 30.9 pg (27.0-33.4); MEAN CORPUSCULAR HGB CONC 35.1 g/dL (32.0-36.0); MEAN CORPUSCULAR VOLUME 88 fl (80-97); MONOCYTES % (AUTO) 3.9 % (3-13); PLATELET COUNT 296 10^3/uL (150-450); RED CELL DISTRIBUTION WIDTH 12.4 % (11.5-14.0); TOTAL CELLS COUNTED % (AUTO) 100 %; WHITE BLOOD COUNT 8.4 10^3/uL (4.0-10.5)
[2018-07-09 09:18] LABS: ALANINE AMINOTRANSFERASE 19 U/L (9-52); ALBUMIN 4.6 g/dL (3.5-5.0); ALKALINE PHOSPHATASE 51 U/L (38-126); ANION GAP 11 (5-19); ASPARTATE AMINO TRANSFERASE 16 U/L (14-36); BILIRUBIN,DIRECT 0.2 mg/dL (0.0-0.4); BILIRUBIN,TOTAL 0.6 mg/dL (0.2-1.3); BLOOD UREA NITROGEN 7 mg/dL (7-20); CALCIUM 9.7 mg/dL (8.4-10.2); CARBON DIOXIDE 25 mmol/L (22-30); CHLORIDE 106 mmol/L (98-107); GLUCOSE 111 mg/dL (75-110); POTASSIUM 4.2 mmol/L (3.6-5.0); SODIUM 142.4 mmol/L (137-145)
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
[2018-07-09 10:14] VITALS: BP 111/61
--- NOTE | 2018-07-09 14:18 | EKG REPORT ---
SEVERITY:- OTHERWISE NORMAL ECG - SINUS RHYTHM BORDERLINE LEFT AXIS DEVIATION : Confirmed by: Ric Rausch MD 09-Jul-2018 14:17:39
== END 2018-07-09 10:25 | disposition home or self-care (01) ==
LOC: ER 07:54
DX: R10.12 Left upper quadrant pain (principal); V49.50XA Passenger injured in collision with unspecified motor vehicles in traffic accident, initial encounter; R11.0 Nausea; J45.909 Unspecified asthma, uncomplicated
CPT/HCPCS: 93005; 99284; 96361; 96374; 36415; 83605; 85025; 80076; 80048; 74177; 93010; J1885; J7030

== ENCOUNTER 2019-04-02 21:59 | Emergency (ER) | payer OTHER | END 2019-04-02 22:09 | disposition left against medical advice (07) | LOC: ER 21:59 | DX: Z53.21 Procedure and treatment not carried out due to patient leaving prior to being seen by health care provider (principal) ==

== ENCOUNTER 2020-01-08 20:11 | Emergency (ER) | payer OTHER ==
--- NOTE | 2020-01-08 20:29 | ER Document Report ---
ED Medical Screen (RME) - General TRAVEL OUTSIDE OF THE [place] IN LAST 30 DAYS: No - General Chief Complaint: Urinary Problem Stated Complaint: UNABLE TO URINATE Time Seen by Provider: 01/08/20 20:25 - HPI Notes: 01/08/20 20:28 HPI: 29-year-old female presenting to the emergency department for evaluation of difficulty urinating with dysuria and hematuria over the last 2 to 3 days. Patient had a old prescription for penicillin that she started taking over the last 2 days with no resolution of symptoms. Denies pelvic pain denies vaginal bleeding or discharge. Does report slight discomfort perhaps into the left flank region, states she does have history of UTI and kidney infections. No fevers I have greeted and performed a rapid initial assessment of this patient. A comprehensive ED assessment and evaluation of the patient, analysis of test results and completion of the medical decision making process will be conducted by additional ED providers PHYSICAL EXAMINATION: GENERAL: Well-appearing, well-nourished and in mild acute distress. HEAD: Atraumatic, normocephalic. EYES: sclera anicteric, conjunctiva are normal. ENT: Moist mucous membranes. NECK: Normal range of motion LUNGS: Normal work of breathing HEART: 2+ radial pulses bilaterally ABD: limited by positioning for exam in triage. EXTREMITIES: no pitting or edema. No cyanosis. NEUROLOGICAL: No focal neurological deficits. Moves all extremities spontaneously and on command. PSYCH: Normal mood, normal affect. SKIN: Warm, Dry, normal turgor, no rashes or lesions noted. (HUGO [place]UBON) - Related Data Allergies/Adverse Reactions: No Known Allergies Allergy (Verified 01/08/20 21:32) Past Medical History - Past Medical History Cardiac Medical History: Denies: Hx Hypertension, Hx Pulmonary Embolism, Hx Heart Murmur Pulmonary Medical History: Reports: Hx Asthma Denies: Hx Sleep Apnea, Hx Tuberculosis Neurological Medical History: Denies: Hx Cerebrovascular Accident, Hx Seizures Endocrine Medical History: Denies: Hx Hyperthyroidism, Hx Hypothyroidism Renal/ Medical History: Denies: Hx Kidney Stones, Hx Ovarian Cysts, Hx Peritoneal Dialysis, Hx Pelvic Inflammatory Disease Malignancy Medical History: Denies: Hx Breast Cancer, Hx Cervical Cancer, Hx Ovarian Cancer GI Medical History: Denies: Hx Gastroesophageal Reflux Disease, Hx Hiatal Hernia, Hx Ulcer Musculoskeltal Medical History: Denies Hx Fibromyalgia Psychiatric Medical History: Reports: Hx Depression Denies: Hx Bipolar Disorder, Hx Post Traumatic Stress Disorder, Hx Schizophrenia Traumatic Medical History: Reports: Hx Fractures - RIGHT WRIST Infectious Medical History: Denies: Hx HIV Past Surgical History: Reports: Hx Section, Hx Cholecystectomy - Immunizations Hx Diphtheria, Pertussis, Tetanus Vaccination: Yes Physical Exam - Vital signs Vitals: Temp Pulse Resp BP Pulse Ox 98.0 F 88 16 128/69 H 99 01/08/20 20:26 01/08/20 20:26 01/08/20 20:26 01/08/20 20:26 01/08/20 20:26 Course - Vital Signs Vital signs: Temp Pulse Resp BP Pulse Ox 98.0 F 88 16 128/69 H 99 01/08/20 20:26 01/08/20 20:26 01/08/20 20:26 01/08/20 20:26 01/08/20 20:26 - Laboratory Laboratory results interpreted by me: 01/08/20 20:39 Urine Urobilinogen 2.0 H Ur Leukocyte Esterase TRACE H
[2020-01-08 20:57] LABS: APPEARANCE,URINE SLIGHTLY-CLOUDY; BILIRUBIN,URINE NEGATIVE (NEGATIVE); COLOR,URINE YELLOW; GLUCOSE, URINE NEGATIVE (NEGATIVE); KETONES,URINE NEGATIVE (NEGATIVE); LEUKOCYTE ESTERASE,URINE TRACE (NEGATIVE); NITRITE,URINE NEGATIVE (NEGATIVE); PROTEIN,URINE NEGATIVE (NEGATIVE); URINE SPECIFIC GRAVITY 1.021
[2020-01-08] MEDS ORDERED: NITROFURANTOIN MONOHYD/M-CRYST 100 MG CAPSULE PO ONE (22:01)
[2020-01-08] MEDS ORDERED: PHENAZOPYRIDINE HCL 200 MG TABLET PO ONE (22:01)
[2020-01-08] MEDS ORDERED: PHENAZOPYRIDINE HCL 100 MG TABLET PO ONE (22:13)
[2020-01-08 22:15] VITALS: BP 114/65
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
== END 2020-01-08 22:22 | disposition home or self-care (01) ==
LOC: ER 20:11
DX: N39.0 Urinary tract infection, site not specified (principal); R33.9 Retention of urine, unspecified; R30.0 Dysuria; J45.909 Unspecified asthma, uncomplicated; R10.9 Unspecified abdominal pain; Z79.899 Other long term (current) drug therapy; Z87.442 Personal history of urinary calculi
CPT/HCPCS: 99283; 81025; 81001; J3490; J8499